=== PATIENT | female | born 1965 | race Caucasian/White ===

== ENCOUNTER → 2017-03-18 | Outpatient (CLI) | payer BC ==
[~2017-03-18] MED LIST: CYANOCOBAL1000 MCG/2 IM; CYANOCOBALAM1000 MCG PO; HYDROCHLOROTHIA25 MG PO; HYDROCODON-ACE1 EAC7 PO; IMITREX100 MG PO; JOLESSA1 EACH PO; K-DUR20 MEQ PO; LIPITOR20 MG PO; LO-DOSE ASPIRIN81 M1 PO; LORATADINE10 M2 PO; PROBIOTIC1 EAC1 PO; VITAMIN D32000 UNI1 PO
== END | disposition home or self-care (01) ==
LOC: CDC 13:59
DX: Z01.810 Encounter for preprocedural cardiovascular examination (principal); G56.01 Carpal tunnel syndrome, right upper limb
CPT/HCPCS: 93000